=== PATIENT | male | born 1975 | race Two or more races ===

== ENCOUNTER 2022-03-22 12:04 | Inpatient (IN) | payer OTHER ==
[~2022-03-22] VITALS: Ht 185.4 cm; Wt 108.9 kg
[2022-03-22] MEDS ORDERED: NIFEDIPINE20 MG PO (12:18)
[2022-03-22] MEDS ORDERED: COZAAR100 MG PO (12:18)
[2022-03-22] MEDS ORDERED: METFORMIN HCL1000 M1 PO (12:19)
[2022-03-22] MEDS ORDERED: JARDIANCE25 MG PO (12:19)
--- NOTE | 2022-03-22 12:20 | NUR ---
SE RECIBE PTE ALERTA Y ORIENTADO X3,REFIERE HABERSE LASTIMADO CON LA [place] [facility] EN [facility] ,REFIERE TENER AREA ENROJECIDA ,DOLOR EN EL AREA.
--- NOTE | 2022-03-22 12:32 | NUR ---
PTE EVALUADO POR MD RUPINDER [place] MED. YAZ SUAREZ EDUCA A PTE SOBRE EL MIMSO Y REFEIREENTENDER. YAZ SUAREZ EJECUTA ORDENES BAJO MEDIDAS ACEPTICAS. PTE PEND A RESULTADOS DE LAB. PTE SE MANTIENE BAJO OBSERBACION POR CAMBIO EN [place] CONDICION.
[2022-03-28] MEDS ORDERED: ZOLPIDEM TARTRA10 MG PO (15:02)
[2022-03-28] MEDS ORDERED: LINEZOLID600 MG PO (15:02)
[2022-03-28] MEDS ORDERED: CLOTRIMAZOLE45 G1 TOP (15:02)
[2022-03-28] MEDS ORDERED: INTESTINEX680 M1 PO (15:02)
== END 2022-03-28 23:01 | disposition home or self-care (01) | DRG 623 ==
LOC: ER 12:04 → SURH 20:20
PROVIDERS: ADMIT Internal Medicine; ATTEND Internal Medicine
PROC: BQ3DZZZ Magnetic Resonance Imaging (MRI) of Right Lower Leg (ICD-10-PCS; principal; 2022-03-23)
PROC: 0JBQ0ZZ Excision of Right Foot Subcutaneous Tissue and Fascia, Open Approach (ICD-10-PCS; 2022-03-25)
DX: E11.628 Type 2 diabetes mellitus with other skin complications (principal); L03.115 Cellulitis of right lower limb; L08.89 Other specified local infections of the skin and subcutaneous tissue; A49.01 Methicillin susceptible Staphylococcus aureus infection, unspecified site; I10 Essential (primary) hypertension; Z20.822 Contact with and (suspected) exposure to COVID-19; Z79.4 Long term (current) use of insulin
CPT/HCPCS: 73722